=== PATIENT | female | born 1975 | race Caucasian/White ===

== ENCOUNTER 2017-06-14 21:14 | Emergency (ER) | payer OTHER ==
[~2017-06-14] VITALS: Ht 162.6 cm; Wt 54.4 kg
[2017-06-14] MEDS ORDERED: OXYCODONE/APAP 5-325 MG TABLET PO ONE (22:00)
[2017-06-14] MEDS ORDERED: CYCLOBENZAPRINE HCL 10 MG TABLET PO ONE (22:00)
[2017-06-14] MEDS ORDERED: ONDANSETRON ODT 4 MG TAB.RAPDIS SL ONE (22:00)
[2017-06-14] MEDS ORDERED: ONDANSETRON ODT 4 MG TAB.RAPDIS ONE (22:33)
[2017-06-14] MEDS ORDERED: OXYCODONE/APAP 5-325 MG TABLET ONE (22:34)
[2017-06-14] MEDS ORDERED: CYCLOBENZAPRINE HCL 10 MG TABLET ONE (22:34)
--- NOTE | 2017-06-14 22:39 | NUR ---
Patient discharged to home in stable conditon. Written and verbal after care instructions given. Patient verbalizes understanding of instructions.
== END 2017-06-14 22:41 | disposition home or self-care (01) ==
LOC: ER 21:15
DX: S13.4XXA Sprain of ligaments of cervical spine, initial encounter (principal); Z88.2 Allergy status to sulfonamides; V49.9XXA Car occupant (driver) (passenger) injured in unspecified traffic accident, initial encounter; Y93.89 Activity, other specified; Y92.410 Unspecified street and highway as the place of occurrence of the external cause; Y99.8 Other external cause status
CPT/HCPCS: 99283; A4663; Q0162